=== PATIENT | female | born 1965 | race Caucasian/White ===

== ENCOUNTER 2018-03-26 09:09 | Inpatient (IN) | payer OTHER, BC ==
[~2018-03-26] VITALS: Ht 160 cm; Wt 82.5 kg
[~2018-03-26 09:09] MED LIST: EPINEPHRINE 1 MG/ML, 1ML ONE; LIDOCAINE-MPF 1%, 2ML ONE; THROMBIN 5,000 UNIT VIAL TP ONE; VANCOMYCIN 1,000 MG ONE
[2018-03-26] MEDS ORDERED: LACTATED RINGERS 1,000 ML IV SCH (09:33)
[2018-03-26] MEDS ORDERED: PHEN-418 PO (09:47)
[2018-03-26] MEDS ORDERED: ROSU40TA PO (09:47)
[2018-03-26] MEDS ORDERED: SPIR100T2 PO (09:47)
[2018-03-26] MEDS ORDERED: RABE20TA26 PO (09:47)
[2018-03-26] MEDS ORDERED: HYDR12.58 PO (09:47)
[2018-03-26] MEDS ORDERED: LIDOCAINE-MPF 1%, 2ML INFIL ONE (10:00)
[2018-03-26] MEDS ORDERED: MIDAZOLAM 1 MG/ML, 2ML ONE (10:08)
[2018-03-26] MEDS ORDERED: FENTANYL PF 250 MCG/5ML ONE ×2 (10:09→13:04)
[2018-03-26] MEDS ORDERED: PROPOFOL 10 MG/ML, 20ML ONE (10:09)
[2018-03-26] MEDS ORDERED: SUCCINYLCHOLINE 20 MG/ML, 10ML ONE (10:10)
[2018-03-26] MEDS ORDERED: ROCURONIUM 10MG/ML,5ML ONE (10:10)
[2018-03-26] MEDS ORDERED: CEFAZOLIN 1,000 MG ONE ×2 (10:11)
[2018-03-26] MEDS ORDERED: DEXAMETHASONE 4 MG/ML, 1ML ONE ×2 (10:12→10:13)
[2018-03-26] MEDS ORDERED: WATER-INJECTION,STERILE 10 ML IV ONE (10:12)
[2018-03-26] MEDS ORDERED: ONDANSETRON 2MG/ML, 2ML ONE (10:13)
[2018-03-26] MEDS ORDERED: ONDANSETRON ODT 8 MG ONE (12:29)
[2018-03-26] MEDS ORDERED: MEPERIDINE/PF 25MG/0.5ML IVPush PRN (12:30)
[2018-03-26] MEDS ORDERED: PROMETHAZINE 25 MG/ML, 1ML IV PRN (12:30)
[2018-03-26] MEDS ORDERED: ACETAMINOPHEN 325 MG TABLET PO PRN (12:30)
[2018-03-26] MEDS ORDERED: ONDANSETRON 2MG/ML, 2ML IVPush PRN (12:30)
[2018-03-26] MEDS ORDERED: hydrALAzine 20 MG/ML, 1ML IV PRN (12:30)
[2018-03-26] MEDS ORDERED: PROMETHAZINE 12.5 MG SUPP PR PRN (12:30)
[2018-03-26] MEDS ORDERED: METOCLOPRAMIDE 5 MG/ML, 2ML IV PRN (12:30)
[2018-03-26] MEDS ORDERED: HYDROmorphone 1 MG/ML, 1ML IV PRN (12:30)
[2018-03-26] MEDS ORDERED: LABETALOL 5MG/ML, 20ML IV PRN (12:30)
[2018-03-26] MEDS ORDERED: LIDOCAINE/PF 0.5% ,50ML INFIL ONE (13:17)
[2018-03-26] MEDS ORDERED: PROPOFOL 50 ML ONE ×3 (13:25→14:58)
[2018-03-26] MEDS ORDERED: OXYcodone 5 MG/5 ML ORAL.SOL UDC ONE ×2 (16:16→16:46)
[2018-03-26] MEDS ORDERED: FENTANYL PF 100 MCG/2ML ONE (16:16)
[2018-03-26] MEDS: OXYcodone 5 MG/5 ML ORAL.SOL UDC PO PRN ×2 (16:19→16:50)
[2018-03-26] MEDS: FENTANYL PF 100 MCG/2ML IV PRN ×2 (16:20→16:38)
[2018-03-26] MEDS: DIAZEPAM 5 MG/ML, 2ML IVPush PRN ×2 (16:27→17:17)
[2018-03-26] MEDS ORDERED: morphine SULFATE 10 MG/ML, 1ML ONE (17:01)
[2018-03-26] MEDS: morphine SULFATE 10 MG/ML, 1ML IV PRN ×3 (17:05→17:17)
[2018-03-26 18:42] VITALS: BP 119/84
[2018-03-26] MEDS ORDERED: morphine SULFATE 10 MG/ML, 1ML IV PRN (19:00)
[2018-03-26] MEDS ORDERED: PHENAZOPYRIDINE 200 MG TABLET PO PRN (19:00)
[2018-03-26] MEDS ORDERED: HYDROcodone/APAP 5/325 TABLET PO PRN (19:00)
[2018-03-26] MEDS ORDERED: MAGNESIUM HYDROXIDE 8%, 30ML UDC PO PRN (19:00)
[2018-03-26] MEDS ORDERED: DIPHENHYDRAMINE 50 MG/ML, 1ML IVPush PRN (19:00)
[2018-03-26] MEDS ORDERED: PROMETHAZINE 25 MG/ML, 1ML IM PRN (19:00)
[2018-03-26] MEDS ORDERED: BISACODYL 10 MG SUPP PR PRN (19:00)
[2018-03-26] MEDS ORDERED: ONDANSETRON 2MG/ML, 2ML IV PRN (19:00)
[2018-03-26] MEDS: D5%-0.9% NACL+KCL 20MEQ 1,000 ML IV SCH (20:34)
[2018-03-26] MEDS: DEXAMETHASONE 4 MG/ML, 1ML IV SCH (20:35)
[2018-03-26] MEDS: CEFAZOLIN PMX 1GM/50ML 50 ML IVPB SCH (20:35)
[2018-03-26] MEDS ORDERED: ATORVASTATIN 80 MG TABLET PO SCH (21:00)
[2018-03-26 21:50] VITALS: BP 121/82
[2018-03-26] MEDS ORDERED: ONDANSETRON ODT 4 MG ONE (22:15)
[2018-03-26] MEDS ORDERED: ONDANSETRON ODT 4 MG PO PRN (22:30)
[2018-03-26] MEDS: METHOCARBAMOL 750 MG TABLET PO PRN (23:37)
[2018-03-27] MEDS: DEXAMETHASONE 4 MG/ML, 1ML IV SCH ×2 (02:50→09:57)
[2018-03-27] MEDS: HYDROcodone/APAP 10/325 MG TABLET PO PRN ×3 (03:08→12:13)
[2018-03-27 03:10] VITALS: BP 121/80
[2018-03-27] MEDS: CEFAZOLIN PMX 1GM/50ML 50 ML IVPB SCH ×2 (05:25→13:23)
[2018-03-27] MEDS ORDERED: OMEPRAZOLE 20 MG CAPSULE.DR PO SCH (07:30)
[2018-03-27] MEDS: METHOCARBAMOL 750 MG TABLET PO PRN (07:40)
[2018-03-27 08:07] VITALS: BP 112/75
[2018-03-27] MEDS ORDERED: SPIRONOLACTONE 25 MG TABLET ONE (08:44)
[2018-03-27] MEDS ORDERED: SENNA/DOCUSATE TABLET PO SCH (09:00)
[2018-03-27] MEDS ORDERED: HYDROCHLOROTHIAZIDE 12.5 MG CAPSULE PO SCH (09:00)
[2018-03-27] MEDS ORDERED: SPIRONOLACTONE 100 MG TABLET PO SCH (09:00)
[2018-03-27] MEDS: D5%-0.9% NACL+KCL 20MEQ 1,000 ML IV SCH (12:14)
[2018-03-27] MEDS ORDERED: LIDOCAINE 2% VISCOUS 15 ML UDC MM ONE (13:00)
[2018-03-27] MEDS ORDERED: MAGNESIUM HYDROXIDE 8%, 30ML UDC PO ONE (13:00)
[2018-03-27] MEDS ORDERED: HYDR-3240 PO (15:05)
[2018-03-27] MEDS ORDERED: METH750T2 PO (15:06)
[2018-03-27 15:07] VITALS: BP 115/75
[2018-03-27] MEDS ORDERED: CEPH-368 PO (15:08)
== END 2018-03-27 15:45 | disposition home or self-care (01) | DRG 472 ==
LOC: ORIP 09:09 → 4NOR 17:54 → DCLOUNGE 03-27 15:18
PROVIDERS: ADMIT Orthopaedic Surgery Orthopaedic Surgery of the Spine; ATTEND Orthopaedic Surgery Orthopaedic Surgery of the Spine
PROC: 0RB30ZZ Excision of Cervical Vertebral Disc, Open Approach (ICD-10-PCS; 2018-03-26)
PROC: 0RP104Z Removal of Internal Fixation Device from Cervical Vertebral Joint, Open Approach (ICD-10-PCS; 2018-03-26)
PROC: 0RG20K0 Fusion of 2 or more Cervical Vertebral Joints with Nonautologous Tissue Substitute, Anterior Approach, Anterior Column, Open Approach (ICD-10-PCS; principal; 2018-03-26 11:00)
DX: M48.02 Spinal stenosis, cervical region (principal); G95.89 Other specified diseases of spinal cord; E78.00 Pure hypercholesterolemia, unspecified; I10 Essential (primary) hypertension; E26.9 Hyperaldosteronism, unspecified; Z87.440 Personal history of urinary (tract) infections; Z90.711 Acquired absence of uterus with remaining cervical stump; Z98.1 Arthrodesis status
CPT/HCPCS: 72040; 95938; 95941; C1713; J0171; J0690; J1100; J2001; J2250; J2405; J2550; J2704; J3010; J3360; J3370; J3490; Q0162; C1762; J0330; J2270; J3480; J7120